=== PATIENT | female | born 1975 | race Caucasian/White ===

== ENCOUNTER 2020-07-21 12:55 | Emergency (ER) | payer MEDICAID ==
[~2020-07-21] VITALS: Ht 152.4 cm; Wt 63.0 kg
[2020-07-21 14:06] LABS: CLARITY URINE TURBID (CLEAR); COLOR URINE DARK YELLOW (YELLOW); KETONES URINE TRACE (NEGATIVE); LEUKOCYTE ESTERASE URINE TRACE (NEGATIVE); NITRITE URINE NEGATIVE (NEGATIVE); OCCULT BLOOD URINE TRACE (NEGATIVE); PROTEIN URINE TRACE (NEGATIVE); SPECIFIC GRAVITY URINE 1.036 (1.005-1.030)
[2020-07-21] MEDS ORDERED: NITR-87 MT (15:53)
[2020-07-21 16:01] VITALS: BP 121/58
== END 2020-07-21 16:02 | disposition home or self-care (01) ==
LOC: ER 12:55
DX: N30.90 Cystitis, unspecified without hematuria (principal); Z98.890 Other specified postprocedural states
CPT/HCPCS: 81003; 81025; 99283